=== PATIENT | male | born 1960 | race Caucasian/White ===

== ENCOUNTER 2016-05-03 12:31 | Emergency (ER) | payer MEDICAID ==
[~2016-05-03 12:31] MED LIST: CYCLOBENZAPRINE 10 MG TAB PO SCH; predniSONE 20 MG TAB PO SCH
[2016-05-03 12:47] VITALS: TEMP 98.1
[2016-05-03] MEDS ORDERED: NS 1,000 ML IV ONE (13:49)
--- NOTE | 2016-05-03 14:05 | EDPHY ---
H & P Stated Complaint: l groin pain/l abd pain/hx of inguinal hernia Source: Patient Exam Limitations: No limitations - Personal History Current Tetanus/Diphtheria Vaccine: Yes - Medical/Surgical History Hx Asthma: No Hx Chronic Respiratory Disease: No Hx Diabetes: No Hx Cardiac Disease: No Hx Renal Disease: No Hx Cirrhosis: No Hx Alcoholism: No Hx HIV/AIDS: No Hx Splenectomy or Spleen Trauma: No Other PMH: medical- BPH, astham, depression, lower lumbar strain - Social History Smoking Status: Never smoked HPI/ROS: CHIEF COMPLAINT: Inguinal hernia, abdominal pain, left leg pain HISTORY OF PRESENT ILLNESS: patient complains of 1 year history of left inguinal hernia. Over the past 1 week he has had significant increase in the pain and fullness of the left groin. It is worse with palpation and Valsalva. Improved somewhat today after he takes his morning methadone. He has some constipation. No nausea or vomiting. Also has pain that radiates down into the left testicle intermittently. No dysuria. No flank pain. He has a 2nd complaint of pain it occasionally is present in the left buttock that radiates down the left leg. He has no midline tenderness of the back. No saddle anesthesia. No incontinence of bowel or bladder. No weakness of the lower extremity. No trauma to the back. He has been seen only by his primary care physician for these complaints and never been evaluated by surgeon. No previous abdominal diagnoses or surgeries. Notes that he takes methadone as he was a previous heroin abuser. He has been clean for 48 months. He presents to the [facility] daily. He feels the methadone is masking his pain as the pain is significantly better during the day but worsened over night into the morning. No other associated complaints or modifying factors PREVIOUS ABDOMINAL SURGERIES/DIAGNOSES: Left inguinal hernia x1 year REVIEW OF SYSTEMS: Ten systems reviewed and are negative unless otherwise noted in the HPI EXAMINATION: General Appearance: Alert, no distress Head: normocephalic, atraumatic Eyes: Pupils equal and round, no conjunctival pallor or injection ENT, Mouth: Mucous membranes moist. Uvula midline. Neck: Normal inspection, supple, non-tender Respiratory: Lungs are clear to auscultation. No wheezing, rhonchi or crackles. Cardiovascular: Regular rate and rhythm . No murmur. Pulses intact distally. Gastrointestinal: Abdomen is soft and nontender . There is tenderness of the left inguinal canal with palpable hernia. Unable to be reduced. Bowel sounds are auscultated in the hernia. No CVA tenderness. : normal appearance of the testicles. Cremasteric reflex intact. No erythema. Left inguinal hernia non reducible. Back: non-tender, no bony abnormalities . No midline tenderness. No crepitus. No step-off. No deformity. Neurological: A&O, nonfocal . Strength is symmetric in both Lower extremities. Sensory intact in both lower extremities. Skin: Warm and dry, no rash Extremities: Nontender, no pedal edema. Full range of motion of both legs. Psychiatric: Mood and affect normal DIFFERENTIAL DIAGNOSES: Including but not limited to Left inguinal hernia, incarcerated left inguinal hernia, strangulated left inguinal hernia epididymitis, torsion, lumbar radiculopathy MDM: 2:04 p.m. left inguinal hernia that is unable to be reduced by me. Minimal tenderness to palpation of the hernia. I do not appreciate evidence of incarceration or strangulation by examination lung. CT scan has been ordered to rule out or rule in the above. There is some mild testicular pain that is intermittently present for him, thus I have ordered a testicular ultrasound to rule out torsion. I have a very low suspicion of this. Also seems to have some lumbar radiculopathy to the left side. He has no bony tenderness of the low back. He has no incontinence. He has no saddle anesthesia, thus I feel this is a mild sciatica versus lumbar radiculopathy. 2:58 p.m. notified by radiologist of the ultrasound findings. There is no torsion of the testicle or epididymitis. He does note the inguinal hernia that is clinically present. 3:30 p.m. I have re-evaluated the patient. I updated him regarding the ultrasound findings. Chemistry and coags were rejected, and they are currently being re- obtained. Additional obtain an I-STAT to verify creatinine to expedite his CT scan. 4:20 p.m. I have re-evaluated the patient. He is feeling better at this time. Patient likely has a lumbar radiculopathy. At this time he has no evidence of acute cord compression or cauda equina by history or examination. He is ambulatory with symmetric strength. No saddle anesthesia. No incontinence. No infective complaints. He also has a left inguinal hernia that does not appear to be incarcerated. This is by examination, ultrasound and my interpretation CT scan. The official read of CT scan is pending at this time. If the CT scan is unremarkable, or reveals only the hernia is not incarcerated will be discharged home with outpatient general surgery referral. He will be instructed to follow up with his primary care physician to seek a general surgery referral for definitive care of a left inguinal hernia. He is to return to the emergency department immediately should he have any weakening of the lower extremities, incontinence, retention of bowel or bladder, or saddle anesthesia. He is comfortable with this plan and discharged home in stable condition. ED Precautions: Worsening pain. Fever. Bloody stools. Bloody emesis. Constipation or diarrhea. SUPERVISION: This patient was independently evaluated without the aide of supervising physician. (David Page) Constitutional: Initial Vital Signs Temperature (C) 98.1 F 05/03/16 12:44 Heart Rate 66 05/03/16 12:44 Respiratory Rate 19 05/03/16 12:44 Blood Pressure 142/91 H 05/03/16 12:44 O2 Sat (%) 92 05/03/16 12:44 O2 Delivery Mode Room Air Allergies/Adverse Reactions: Penicillins Allergy (Verified 05/03/16 12:43) Home Medications: Medication Instructions Recorded Cyclobenzaprine [Flexeril 10 MG 10 mg PO TID PRN #15 tab 05/03/16 (*)] Doxycycline Calcium 05/03/16 Effexor 05/03/16 Finasteride 05/03/16 METHADONE HCL 05/03/16 predniSONE [Deltasone] 60 mg PO DAILY #15 tablet 05/03/16 Medical Decision Making - Diagnostics Imaging: CT abdomen pelvis with IV contrast: No evidence of incarcerated hernia noted. Study results reported to me by Dr. Bridger Kauffman. (Vick Wills) ED Course/Re-evaluation: The patient's CT scan demonstrates no evidence of a incarcerated hernia. The patient will be discharged home with customary aftercare instructions and return precautions. (Vick Wills) Other Provider: PHYSICIAN DOCUMENTATION: The patient was evaluated and managed by the Physician Prize Fighter. My co- signature indicates that I have reviewed this chart and I agree with the findings and plan of care as documented. I am the secondary supervising physician. (Vick Wills) - Data Points Laboratory Results: Laboratory Results 05/03/16 14:50 05/03/16 15:30 Medications Given: Discontinued Medications Sodium Chloride (Ns) 1,000 mls @ 0 mls/hr IV ONCE ONE PRN Reason: Wide Open Stop: 05/03/16 13:50 Last Admin: 05/03/16 14:45 Dose: 1,000 mls Departure - Departure Disposition: Home, Routine, Self-Care Clinical Impression: Inguinal hernia of left side without obstruction or gangrene, Lumbar radiculopathy, acute Condition: Good Instructions: Inguinal Hernia (ED), Lumbar Radiculopathy (ED) Additional Instructions: Follow-up with primary care physician and general surgeon for definitive care. Return to ER for worsening pain, constipation, vomiting he, saddle anesthesia, incontinence of bowel or bladder Referrals: Luiz Gotti MD [Medical Doctor] - As per Instructions Walt Martinez MD [Medical Doctor] - As per Instructions Prescriptions: Cyclobenzaprine [Flexeril 10 MG (*)] 10 mg PO TID PRN #15 tab PRN Reason: Spasms predniSONE [Deltasone] 60 mg PO DAILY #15 tablet
[2016-05-03 14:26] LABS: COLOR PALE YELLOW
[2016-05-03 14:27] LABS: LEUKOCYTE ESTERASE,URINE NEGATIVE (NEGATIVE); NITRITE,URINE NEGATIVE (NEGATIVE)
[2016-05-03] MEDS ORDERED: IOPAMIDOL (ISOVUE-300) 100 ML BTL IV ONE (14:44)
[2016-05-03 15:08] LABS: % IMMATURE GRANULYOCYTES 0.2 % (0.0-1.1); ABSOLUTE IMMATURE GRANULOCYTES 0.01 10^3/uL (0.00-0.10); ADD DIFF? NO; ADD MORPH? NO; ADD SCAN? NO; ATYPICAL LYMPHOCYTE FLAG 0 (0-99); FRAGMENT RBC FLAG 0 (0-99); HEMATOCRIT 40.6 % (40.0-51.0); HEMOGLOBIN 14.1 g/dL (13.7-17.5); LEFT SHIFT FLG 0 (0-99); LIPEMIA HEMOLYSIS FLAG 90 (0-99); MEAN CELL HEMOGLOBIN 31.3 pg (27.9-34.1); MEAN CELL HEMOGLOBIN CONCENTR. 34.7 g/dL (32.4-36.7); MEAN PLATELET VOLUME 11.3 fL (8.7-11.7); PLATELET CLUMPS FLAG 10 (0-99); PLATELET COUNT 275 10^3/uL (150-400); RED BLOOD CELL COUNT 4.51 10^6/uL (4.40-6.38); RED CELL DISTRIBUTION WIDTH 12.1 % (11.5-15.2)
[2016-05-03 16:15] LABS: ALANINE AMINOTRANSFERASE 96 IU/L (21-72); ALBUMIN 3.6 g/dL (3.5-5.0); ALKALINE PHOSPHATASE 85 IU/L (38-126); ANION GAP 7 mEq/L (8-16); ASPARTATE AMINOTRANSFERASE 39 IU/L (17-59); BILIRUBIN,TOTAL 0.7 mg/dL (0.1-1.4); BILIRUBIN-CONJUGATED 0.3 mg/dL (0.0-0.5); BILIRUBIN-UNCONJUGATED 0.4 mg/dL (0.0-1.1); CALCIUM 8.8 mg/dL (8.5-10.4); CARBON DIOXIDE 27 mEq/l (22-31); CHLORIDE 104 mEq/L (97-110); CREATININE 0.7 mg/dL (0.7-1.3); GLOMERULAR FILTRATION RATE > 60; GLUCOSE 76 mg/dL (70-100); SODIUM 138 mEq/L (134-144); TOTAL PROTEIN 6.8 g/dL (6.3-8.2)
[2016-05-03 16:23] VITALS: BP 152/95; PULSE 61; RESP 14; O2SAT 97
== END 2016-05-03 16:52 | disposition home or self-care (01) ==
DX: K40.90 Unilateral inguinal hernia, without obstruction or gangrene, not specified as recurrent (principal); M54.16 Radiculopathy, lumbar region; J45.909 Unspecified asthma, uncomplicated
CPT/HCPCS: 82947-QW; J7512; Q9967

== ENCOUNTER 2017-08-15 08:39 | Emergency (ER) | payer MEDICAID ==
[2017-08-15] MEDS ORDERED: TAMSULOSIN HCL 0.4 MG CAP PO ONE (09:18)
[2017-08-15] MEDS ORDERED: PEG 3350/NA SULF,BICARB,CL/KCL (GAVILYTE-G) 4000 ML BTL PO ONE (09:19)
--- NOTE | 2017-08-15 09:24 | EDPHY ---
H & P Stated Complaint: Constipation, no BM for 2 days, rectal pain. Time Seen by Provider: 08/15/17 08:57 HPI/ROS: CHIEF COMPLAINT: Constipation HISTORY OF PRESENT ILLNESS: Patient is a 57-year-old man with a history of BPH , constipation and heroin abuse currently on methadone. He states that he has felt constipated for the last 2 days. He has to strain to have small bowel movements. He states that this happens to her quite frequently. No blood. No vomiting. No fever. No abdominal pain. No known hemorrhage or hernias. REVIEW OF SYSTEMS: Constitutional: denies: chills, fever, recent illness, recent injury EENTM: denies: blurred vision, double vision, nose congestion Respiratory: denies: cough, shortness of breath Cardiac: denies: chest pain, irregular heart rate, lightheadedness, palpitations Gastrointestinal/Abdominal: See HPI denies: abdominal pain, diarrhea, nausea, vomiting, blood streaked stools Genitourinary: denies: dysuria, frequency, hematuria, pain Musculoskeletal: denies: joint pain, muscle pain Skin: denies: lesions, rash, jaundice, bruising Neurological: denies: headache, numbness, paresthesia, tingling, dizziness, weakness Hematologic/Lymphatic: denies: blood clots, easy bleeding, easy bruising Immunologic/allergic: denies: HIV/AIDS, transplant EXAM: GENERAL: Well-appearing, well-nourished and in no acute distress. HEAD: Atraumatic, normocephalic. EYES: Pupils equal round and reactive to light, extraocular movements intact, sclera anicteric, conjunctiva are normal. ENT: TMs normal, nares patent, oropharynx clear without exudates. Moist mucous membranes. NECK: Normal range of motion, supple without lymphadenopathy or JVD. LUNGS: Breath sounds clear to auscultation bilaterally and equal. No wheezes rales or rhonchi. HEART: Regular rate and rhythm without murmurs, rubs or gallops. ABDOMEN: Soft, nontender, normoactive bowel sounds. No guarding, no rebound. No masses appreciated. BACK: No CVA tenderness, no spinal tenderness, step-offs or deformities EXTREMITIES: Normal range of motion, no pitting or edema. No clubbing or cyanosis. NEUROLOGICAL: Cranial nerves II through XII grossly intact. Normal speech, normal gait. 5/5 strength, normal movement in all extremities, normal sensation PSYCH: Normal mood, normal affect. SKIN: Warm, dry, normal turgor, no visible rashes or lesions. Source: Patient Exam Limitations: No limitations - Personal History Current Tetanus Diphtheria and Acellular Pertussis (TDAP): Yes - Medical/Surgical History Hx Asthma: Yes Hx Chronic Respiratory Disease: No Hx Diabetes: No Hx Cardiac Disease: No Hx Renal Disease: No Hx Cirrhosis: No Hx Alcoholism: Yes Hx HIV/AIDS: No Hx Splenectomy or Spleen Trauma: No Other PMH: medical- BPH, asthma, depression, lower lumbar strain. Heroin use - on methadone. - Family History Significant Family History: No pertinent family hx - Social History Smoking Status: Never smoked Alcohol Use: Sober Drug Use: None Constitutional: Initial Vital Signs Temperature (C) 36.4 C 08/15/17 08:41 Heart Rate 70 08/15/17 08:41 Respiratory Rate 16 08/15/17 08:41 Blood Pressure 130/91 H 08/15/17 08:41 O2 Sat (%) 92 08/15/17 08:41 O2 Delivery Mode Room Air Allergies/Adverse Reactions: Penicillins Allergy (Verified 05/03/16 12:43) Home Medications: Medication Instructions Recorded Effexor 05/03/16 Finasteride 05/03/16 METHADONE HCL 05/03/16 Medical Decision Making ED Course/Re-evaluation: I recommended that we do a rectal exam and proctoscope. The patient refused this. He states that he just wants laxatives. We discussed options. I will treat him with GoLYTELY. He is also asking for a single dose of his Flomax which she has run out of. He is following up with his urologist in a few days. Differential Diagnosis: Partial list of the Differential diagnosis considered include but were not limited to; constipation, hemorrhoid, impact and although unlikely based on the history and physical exam, I also considered small-bowel obstruction, diverticulitis. I discussed these differential diagnoses and the plan with the patient as well as the usual and expected course. The patient understands that the diagnosis is provisional and that in medicine we are not always correct and that further workup is often warranted. Usual and customary warnings were given. All of the patient's questions were answered. The patient was instructed to return to the emergency department should the symptoms at all worsen or return, otherwise to followup with the physician as we discussed. - Data Points Medications Given: Discontinued Medications Polyethylene Glycol/Electrolytes (Gavilyte - G) 4,000 ml PO ONCE ONE Stop: 08/15/17 09:20 Last Admin: 08/15/17 09:54 Dose: 4,000 ml Tamsulosin HCl (Flomax) 0.4 mg PO EDNOW ONE Stop: 08/15/17 09:19 Last Admin: 08/15/17 09:32 Dose: 0.4 mg Departure - Departure Disposition: Home, Routine, Self-Care Clinical Impression: Constipation Qualifiers: Constipation type: unspecified constipation type Qualified Code(s): K59.00 - Constipation, unspecified Condition: Fair Instructions: Polyethylene Glycol 3350/Electrolytes (By mouth), Constipation ( DC) Additional Instructions: Drink the GoLYTELY 1 cup every half an hour until you have satisfactory results. Referrals: NIRMAL ADLER [Other] - As per Instructions
[2017-08-15 09:37] VITALS: BP 133/87
== END 2017-08-15 09:55 | disposition home or self-care (01) ==
DX: K59.00 Constipation, unspecified (principal); J45.909 Unspecified asthma, uncomplicated

== ENCOUNTER 2017-09-11 11:53 | Emergency (ER) | payer MEDICAID ==
[2017-09-11 12:02] VITALS: BP 122/91
--- NOTE | 2017-09-11 12:29 | EDPHY ---
H & P Time Seen by Provider: 09/11/17 12:02 HPI/ROS: CHIEF COMPLAINT: Fatigue, history of head injury HISTORY OF PRESENT ILLNESS: 57-year-old male presents to the emergency department 1 week after he fell hiking. The patient states that he lost his footing and fell on his right side injuring his right hip, right arm, and right side of his face. He did not lose consciousness. He denies any headache. He denies neck or back pain. Denies chest pain or difficulty breathing. No abdominal pain. Normal appetite. Presents to the emergency department today because he still feels fatigue which she believes is associated with his head injury. He denies visual complaints. He has had ongoing swelling in his right arm since his fall over 1 week ago. He has also had some swelling lateral aspect of his right hip although he states that this is improving. He believes his tetanus shot is current. REVIEW OF SYSTEMS: Constitutional: Fatigue. No fever, no chills. Eyes: No double or blurry vision. ENT: No sore throat. Respiratory: No cough, no shortness of breath. Cardiac: No chest pain. Gastrointestinal: No abdominal pain, vomiting or diarrhea. Genitourinary: No dysuria. Musculoskeletal: No neck or back pain. Skin: No rashes. Neurological: No headache. Past Medical/Surgical History: BPH, asthma, depression, substance abuse including heroin now on methadone. Social History: and lives in [place] Smoking Status: Never smoked Physical Exam: General Appearance: Alert, no distress. Mentating normally and answering questions appropriately. He has a healing abrasion noted to the right cheek as well as some resolving ecchymosis noted to the right anterior aspect of his face. Eyes: Pupils equal and round. Extraocular motions are all intact. ENT: Mouth: Mucous membranes moist. No dental injury or malocclusion. No hemotympanum. Respiratory: No wheezing, rhonchi, or rales, lungs are clear to auscultation. Cardiovascular: Regular rate and rhythm. Gastrointestinal: Abdomen is soft and nontender, no masses, no rebound or guarding, bowel sounds normal. Neurological: Alert and oriented x 3, cranial nerves II through XII grossly intact Skin: Ecchymosis noted to the lateral aspect of his right hip. He has some swelling and tenderness with palpation. There is no redness or signs of cellulitis. No palpable bony tenderness. Healing abrasions noted to the volar aspect of his right mid forearm. He has swelling extending from the right wrist up to the right mid humerus. Warm and dry, no rashes. No lymphangitis. No axillary lymphadenopathy. Musculoskeletal: Nontender to palpate along the cervical, thoracic or lumbar spine. Neck is supple. Extremities: Full range of motion and no peripheral edema. Swelling noted to the right upper extremity as above. No evidence of compartment syndrome. No evidence of cellulitis. Full range of motion of his upper lower extremities. He has pain and weakness with pushing with his right upper extremity. Weak triceps on the right compared to the left. Psychiatric: Patient is oriented X 3, there is no agitation. Constitutional: Initial Vital Signs Temperature (C) 36.3 C 09/11/17 11:58 Heart Rate 73 09/11/17 11:58 Respiratory Rate 18 09/11/17 11:58 Blood Pressure 122/91 H 09/11/17 11:58 O2 Sat (%) 92 09/11/17 11:58 O2 Delivery Mode Room Air Allergies/Adverse Reactions: Penicillins Allergy (Verified 09/11/17 11:55) Home Medications: Medication Instructions Recorded Effexor 05/03/16 Finasteride 05/03/16 METHADONE HCL 05/03/16 Ibuprofen 600 mg PO TID PRN #30 tablet 09/11/17 Medical Decision Making ED Course/Re-evaluation: 57-year-old male presents to the emergency department complaining of fatigue. The patient has a normal neurologic examination. His reported trauma was over 1 week ago. I do not think CT imaging of the brain is indicated given no headache and normal neurologic examination. This was discussed with the patient who verbalized understanding and agreed. The patient has area of ecchymosis and evidence of contusion to the right lateral hip. The patient has a normal gait. I do not think imaging studies are indicated. Patient has significant swelling noted to the right upper extremity. He declined x-rays. He also declined ultrasound. I explained to the patient that I was concerned about possible DVT. The patient has also had a history of a previous PE and I did explain that this could be fatal. I recommended obtaining ultrasound of the right upper extremity in the emergency department now, however the patient declined. He states "I am just going to come back if it is worse". The case was discussed with Dr. Med Verde, secondary supervising physician, who did not directly evaluate the patient but agrees with treatment and plan. Differential Diagnosis: Head injury including but not limited to concussion, skull fracture, intraparenchymal contusion, subarachnoid, subdural and epidural hematoma. Arm pain including but not limited to contusion, fracture, sprain, compartment syndrome, DVT Departure - Departure Disposition: Home, Routine, Self-Care Clinical Impression: Facial contusion Qualifiers: Encounter type: initial encounter Qualified Code(s): S00.83XA - Contusion of other part of head, initial encounter Closed head injury Qualifiers: Encounter type: initial encounter Qualified Code(s): S09.90XA - Unspecified injury of head, initial encounter Abrasion of right arm Qualifiers: Encounter type: initial encounter Qualified Code(s): S40.811A - Abrasion of right upper arm, initial encounter Contusion of right hip Qualifiers: Encounter type: initial encounter Qualified Code(s): S70.01XA - Contusion of right hip, initial encounter Condition: Good Instructions: Concussion (ED), Contusion in Adults (ED), Abrasion (ED) Additional Instructions: Ibuprofen 600 mg every 8 hr as needed for pain. Return to the emergency department if you developed headache, vomiting, altered mental status, or if you feel worse in any way. Follow up with orthopedic surgeon regarding ongoing symptoms pain and swelling in your right arm. You declined any imaging studies in the emergency department. You declined laboratory testing in the emergency department. Referrals: NIRMAL ADLER [Other] - As per Instructions Keshav Vazquez MD [Medical Doctor] - 2-3 days without fail (Orthopedic surgeon on-call) Prescriptions: Ibuprofen 600 mg PO TID PRN #30 tablet PRN Reason: prn pain
== END 2017-09-11 12:59 | disposition home or self-care (01) ==
DX: S00.83XA Contusion of other part of head, initial encounter (principal); S70.01XA Contusion of right hip, initial encounter; S40.811A Abrasion of right upper arm, initial encounter; J45.909 Unspecified asthma, uncomplicated; W18.39XA Other fall on same level, initial encounter; Y99.8 Other external cause status; Y93.01 Activity, walking, marching and hiking

== ENCOUNTER 2018-05-12 08:22 | Emergency (ER) | payer MEDICAID ==
[2018-05-12 08:48] VITALS: BP 151/101
[2018-05-12] MEDS ORDERED: GLYCERIN ADULT 1 EACH SUPP PR ONE (09:23)
[2018-05-12] MEDS ORDERED: MAGNESIUM CITRATE 300 ML BOTTLE PO ONE (09:23)
--- NOTE | 2018-05-12 09:24 | EDPHY ---
H & P Stated Complaint: constipation Source: Patient Exam Limitations: No limitations - Personal History Current Tetanus Diphtheria and Acellular Pertussis (TDAP): Yes - Medical/Surgical History Hx Asthma: Yes Hx Chronic Respiratory Disease: No Hx Diabetes: No Hx Cardiac Disease: No Hx Renal Disease: No Hx Cirrhosis: No Hx Alcoholism: Yes Hx HIV/AIDS: No Hx Splenectomy or Spleen Trauma: No Other PMH: medical- BPH, asthma, depression, lower lumbar strain. Heroin use - on methadone. - Social History Smoking Status: Never smoked Time Seen by Provider: 05/12/18 09:03 HPI/ROS: HPI: This is a 57-year-old male who presents with Chief Complaint: Constipation Location: GI Quality: No bowel movement Duration: 4 days Signs and Symptoms: no fever, no nausea, no vomiting, no hematemesis, no blood in stool, no abdominal bloating, no diarrhea, no back pain, no urinary symptoms , no testicular/groin pain, no indigestion, no chest pain, no shortness of breath Timing: Acute on chronic Severity: [id number] Context: Patient is homeless, takes methadone for the last 6 years as he is sober from IV heroin drug use, presents with acute on chronic constipation. He reports he has not had a bowel movement in 4 days. His diet consists of oatmeal daily. He tried taking Metamucil yesterday without any relief of his symptoms. He denies any fever, nausea, vomiting, blood in stool, hemorrhoids. He reports that he was able to eat and drink this morning without any difficulty. No history of abdominal surgeries. Modifying Factors: Metamucil Comment: ROS: A comprehensive 10 system review of systems is otherwise negative aside from elements mentioned in the history of present illness. MEDICAL/SURGICAL/SOCIAL HISTORY: Medical history: BPH, asthma, depression, lower lumbar strain. Previous IV heroin drug user. Sober for 6 years on methadone. Surgical history: Denies Social history: Homeless. Family history noncontributory. CONSTITUTIONAL: Untidy, polite and cooperative, extremely well-appearing middle -aged white male, long [place], awake and alert, no obvious distress HEENT: Atraumatic and normocephalic, PERRL, EOMI. Nares patent; no rhinorrhea; no nasal mucosal edema. Tympanic membranes clear. Oropharynx clear, no exudate and moist pink mucosa. Airway patent. No lymphadenopathy. No meningismus. Cardiovascular: Normal S1/S2, regular rate, regular rhythm, without murmur rub or gallop. PULMONARY/CHEST: Symmetrical and nontender. Clear to auscultation bilaterally. Good air movement. No accessory muscle usage. ABDOMEN: Soft, nondistended, nontender, no rebound, no guarding, no peritoneal signs, no masses or organomegaly. No CVAT. Hypoactive bowel sounds x4 quadrants heard. EXTREMITIES: 2/2 pulses, strength 5/5, no deformities, no clubbing, no cyanosis or edema. NEUROLOGICAL: no focal neuro deficits. GCS 15. SKIN: Warm and dry, no erythema. no rash. Good capillary refill. (Nesha Chavarria) Constitutional: Initial Vital Signs Temperature (C) 36.7 C 05/12/18 08:43 Heart Rate 80 05/12/18 08:43 Respiratory Rate 16 05/12/18 08:43 Blood Pressure 151/101 H 05/12/18 08:43 O2 Sat (%) 92 05/12/18 08:43 O2 Delivery Mode Room Air Allergies/Adverse Reactions: Penicillins Allergy (Verified 09/11/17 11:55) Home Medications: Medication Instructions Recorded Effexor 05/03/16 Finasteride 05/03/16 METHADONE HCL 05/03/16 Ibuprofen 600 mg PO TID PRN #30 tablet 09/11/17 Medical Decision Making ED Course/Re-evaluation: Vital signs reviewed and show mildly elevated blood pressure upon arrival. Abdomen is soft and nontender and doubt surgical process or need for CT imaging. Abdominal x-ray ordered my read shows moderate stool burden but no signs of obstruction. Eating and drinking without difficulty in the emergency room. Patient given glycerin suppository and magnesium citrate. Verbal and written instructions for bowel regimen while taking methadone discussed thoroughly with patient. This patient was seen under the supervision of my secondary supervising physician. I evaluated care for this patient independently. (Nesha Chavarria) The patient was evaluated and managed by the physician nutritional assistant. I have reviewed this chart and I agree with the findings and plan of care as documented , as indicated by my signature. I am the secondary supervising physician. ( Rosa Elena Elena) Differential Diagnosis: Differential diagnosis includes but is not limited to obstipation, ileus, constipation, rectal impaction. (Nesha Chavarria) - Data Points Medications Given: Discontinued Medications Glycerin (Glycerin Adult) 1 each VA ONCE ONE Stop: 05/12/18 09:24 Last Admin: 05/12/18 09:36 Dose: 1 each Magnesium Citrate (Magnesium Citrate) 300 ml PO ONCE ONE Stop: 05/12/18 09:24 Last Admin: 05/12/18 09:36 Dose: 300 ml Departure - Departure Disposition: Home, Routine, Self-Care Clinical Impression: Constipation due to opioid therapy, Methadone dependence Condition: Good Instructions: Polyethylene Glycol 3350 (By mouth), Constipation (ED) Additional Instructions: Consume a minimum of 8-10 glasses of water or electrolyte fluid replacement drinks that include Gatorade, Powerade, Pedialyte. Eat a bland diet for the next 48 hours and then slowly advance as tolerated. Take MiraLax [id number] daily along with your Metamucil. Place glycerin suppository intake 150 mL of magnesium citrate when you arrive home. If no bowel movement in 4-6 hours, take the other 150 mL of magnesium citrate. Establish care at the [facility]. Referrals: [facility],. [Clinic] - As per Instructions
== END 2018-05-12 09:35 | disposition home or self-care (01) ==
LOC: EDUNIT#
DX: K59.03 Drug induced constipation (principal); F11.21 Opioid dependence, in remission; J45.909 Unspecified asthma, uncomplicated; N40.0 Benign prostatic hyperplasia without lower urinary tract symptoms; F32.9 Major depressive disorder, single episode, unspecified; Z79.899 Other long term (current) drug therapy; Z59.0 Homelessness